=== PATIENT | male | born 2000 | race Caucasian/White ===

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

== ENCOUNTER 2019-06-10 20:15 | Emergency (ER) | payer SELFPAY ==
[~2019-06-10] VITALS: Ht 170.2 cm; Wt 87.0 kg
[~2019-06-10 20:15] MED LIST: DOCU-144 PO; GLYC1SUP92 PR
[2019-06-10 20:17] VITALS: Ht 170.2 cm; Wt 87.0 kg
[2019-06-10] MEDS ORDERED: ALBU18HF INHALATION (21:55)
[2019-06-10] MEDS ORDERED: PRED20TA PO (21:55)
[2019-06-10] MEDS ORDERED: BENZ200C68 PO (21:55)
--- NOTE | 2019-06-10 22:00 | ERD ---
ER Documentation Chief Complaint Chief Complaint COUGH WITH SOB [id number]; HPI This patient is a 19-year-old male with past medical history of asthma presenting to the emergency department with complaints of dry cough intermittently for the past 1 week. 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 He denies any fevers, chills, current shortness of breath, or other symptoms at this time. ROS All systems reviewed and are negative except as per history of present illness. Medications Home Meds Active Scripts Benzonatate* (Benzonatate*) 200 Mg Capsule, 200 MG PO TID PRN for COUGH, #15 CAP Prov:SILVINO CHA PA-C 06/10/19 Albuterol Sulfate* (Ventolin HFA*) 18 Gm Hfa.aer.ad, 2 PUFF INHALATION Q4H, #1 INHALER Prov:SILVINO CHA PA-C 06/10/19 Prednisone* (Prednisone*) 20 Mg Tab, 40 MG PO DAILY for 4 Days, TAB Prov:SILVINO CHA PA-C 06/10/19 Glycerin* (Glycerin (Adult)*) 1 Each Supp.rect, 1 EACH NH DAILY PRN for CONSTIPATION, #30 SUPP.RECT Prov:GARCIA VELEZ PA-C 06/30/18 Docusate Sodium* (Colace*) 100 Mg Capsule, 100 MG PO TID, #30 CAP Prov:GARCIA VELEZ PA-C 06/30/18 Allergies Allergies: Coded Allergies: No Known Allergy (Verified Allergy, Unknown, 06/16/08) PMhx/Soc Medical and Surgical Hx: pt denies Surgical Hx History of Surgery: No Anesthesia Reaction: No Hx Neurological Disorder: No Hx Respiratory Disorders: Yes (ASTHMA) Hx Cardiac Disorders: No Hx Psychiatric Problems: No Hx Miscellaneous Medical Probl: No Hx Alcohol Use: No Hx Substance Use: Yes (marijuana) Hx Tobacco Use: No FmHx Family History: No diabetes Physical Exam Vitals Vital Signs Date Temp Pulse Resp B/P (MAP) Pulse Ox O2 O2 Flow FiO2 Time Delivery Rate 06/10/19 98.7 84 18 138/82 99 20:17 (100) Physical Exam Const: No acute distress Head: Atraumatic Eyes: Normal Conjunctiva ENT: Normal External Ears, Nose and Mouth. Neck: Full range of motion. No meningismus. Resp: Scattered inspiratory wheezing noted. No significantly diminished breath sounds. No respiratory distress. No crackles. Cardio: Regular rate and rhythm, no murmurs Skin: No petechiae or rashes Back: No midline or flank tenderness Ext: No cyanosis, or edema Neur: Awake and alert Psych: Normal Mood and Affect Procedures/MDM 19-year-old male presents to the emergency department complaining of intermittent shortness of breath and cough for the past 1 week. The patient's clinical presentation is very consistent with an acute viral syndrome. The patient does not exhibit any clinical signs or symptoms concerning for serious bacterial infection or systemic illness. Based on history and clinical exam findings the patient does not appear to have evidence of pneumonia, strep pharyngitis, urinary tract infection, bacteremia, sepsis, or meningitis. For these reasons I do not believe it is necessary to obtain laboratory testing or diagnostic imaging. I believe it would be appropriate for symptom control, and close outpatient primary care follow-up. Based on patient's history of present illness and physical examination the decision was made to discharge. There is no evidence of life threatening injuries or illnesses at this time. On re-examination, patient resting in no distress, stable vital signs, reports feeling better and safe for discharge with outpatient follow up with PMD in 1-2 days. Patient given return precautions. Patient's respiratory status has stabilized while in the department and is appropriate for outpatient work up. Exam and work up not consistent w/ impending respiratory failure or cardiovascular collapse. Departure Diagnosis: Primary Impression: Acute wheezy bronchitis Condition: Fair Patient Instructions: Bronchitis With Wheezing (Adult) Referrals: [facility] YOU HAVE RECEIVED A MEDICAL SCREENING EXAM AND THE RESULTS INDICATE THAT YOU DO NOT HAVE A CONDITION THAT REQUIRES URGENT TREATMENT IN THE EMERGENCY DEPARTMENT. FURTHER EVALUATION AND TREATMENT OF YOUR CONDITION CAN WAIT UNTIL YOU ARE SEEN IN YOUR DOCTORS OFFICE WITHIN THE NEXT 1-2 DAYS. IT IS YOUR RESPONSIBILITY TO MAKE AN APPOINTMENT FOR FOLOW-UP CARE. IF YOU HAVE A PRIMARY DOCTOR --you should call your primary doctor and schedule an appointment IF YOU DO NOT HAVE A PRIMARY DOCTOR YOU CAN CALL OUR PHYSICIAN REFERRAL HOTLINE AT IF YOU CAN NOT AFFORD TO SEE A PHYSICIAN YOU CAN CHOSE FROM THE FOLLOWING [facility] [id number] [facility] [address] [facility] [facility] [address] [facility] [address] [facility] [address] [facility] [facility] [address] Additional Instructions: Call your primary care doctor TOMORROW for an appointment during the next 1-2 days.See the doctor sooner or return here if your condition worsens before your appointment time. SILVINO CHA PA-C Jun 10, 2019 22:00
[2019-06-10 22:10] VITALS: BP 140/80; PULSE 66; RESP 18
== END 2019-06-10 22:12 | disposition home or self-care (01) ==
LOC: FTE 20:15
DX: J45.901 Unspecified asthma with (acute) exacerbation (principal)
CPT/HCPCS: 99283